=== PATIENT | male | born 1930 | race Caucasian/White ===

== ENCOUNTER 2016-12-16 03:37 | Inpatient (IN) | payer OTHER ==
[~2016-12-16] VITALS: Ht 177.8 cm; Wt 105.3 kg
[2016-12-16 04:16] LABS: BASOPHIL COUNT 0.1 K/uL (0-0.1); EOSINOPHIL (%) 2.1 % (0-5); EOSINOPHIL COUNT 0.3 K/uL (0-0.3); HEMATOCRIT 41.2 % (38.0-50.0); IMMATURE GRANULOCYTE (%) 0.7 % (0.0-0.7); IMMATURE GRANULOCYTE COUNT 0.1 K/uL; INSTRUMENT ABS NEUTROPHIL CT 8.9 K/uL; LYMPHOCYTE COUNT 3.2 K/uL (1.0-2.8); MCH 32.4 PG (29.0-34.0); MCHC 33.7 G/DL (30.0-36.0); MEAN PLAT.VOLUME 10.3 uM^3 (9.0-12.4); MONOCYTE (%) 8.9 % (3-12); MONOCYTE COUNT 1.2 K/uL (0-0.8); NEUTROPHIL (%) 64.5 % (45-76); NEUTROPHIL COUNT 8.9 K/uL (1.8-6.4); PLATELET COUNT 228 K/uL (156-360); RBC DIS.WIDTH-CV 12.2 % (11.8-14.6); RBC DIS.WIDTH-SD 42.8 % (39-53); RED BLOOD COUNT 4.29 M/uL (4.00-5.50); WHITE BLOOD COUNT 13.8 K/uL (4.1-10.2)
[2016-12-16 04:37] LABS: CHLORIDE 108 mEq/L (99-109); POTASSIUM 4.3 mEq/L (3.7-5.4); SODIUM 143 mEq/L (136-147)
[2016-12-16 04:39] LABS: GLUCOSE 113 mg/dL (70-99)
[2016-12-16 04:40] LABS: ANION GAP 11 MEQ/L (2-14)
[2016-12-16 04:42] LABS: PROTHROMBIN TIME 10.6 (9.2-11.2); PTT 25.3 (25-32)
[2016-12-16 04:43] LABS: GFR ESTIMATE (CALCULATED) 51 mL/min/
[2016-12-16 04:44] LABS: UREA NITROGEN (BUN) 23 mg/dL (9-23)
[2016-12-16 04:49] LABS: TROP-I INTERPRETATION NEGATIVE; TROPONIN-I 0.03 ng/mL (0.0-0.30)
[2016-12-16] MEDS ORDERED: TRAMADOL HCL50 MG PO (07:26)
[2016-12-16] MEDS ORDERED: ATENOLOL50 MG PO (07:26)
[2016-12-16] MEDS ORDERED: NORVASC10 MG PO (07:27)
[2016-12-16] MEDS ORDERED: LOSARTAN POTAS100 MG PO (07:27)
[2016-12-16] MEDS ORDERED: LEVO-T137 MCG PO (07:28)
[2016-12-16] MEDS ORDERED: CENTRUM SILVER1 EAC5 PO (07:30)
[2016-12-16] MEDS ORDERED: LANSOPRAZOLE30 MG PO (07:30)
[2016-12-16 08:39] LABS: HDL CHOLESTEROL 30 MG/DL (Desirable>=40); LDL CHOLESTEROL 102 mg/dL (Desirable<100); NON-HDL CHOLESTEROL 117 mg/dL (Desirable<160); TOTAL CHOLESTEROL 147 mg/dL (Desirable<200); TRIGLYCERIDES 74 MG/DL (Normal: <150)
[2016-12-16 08:42] VITALS: BP 162/71
[2016-12-16 11:39] VITALS: BP 140/65
[2016-12-16 14:00] LABS: TROP-I INTERPRETATION POSITIVE; TROPONIN-I 1.36 ng/mL (0.0-0.30)
[2016-12-16 15:53] LABS: INTER. NORMALIZED RATIO 1.1
[2016-12-16 16:16] VITALS: BP 123/58
[2016-12-16 20:00] VITALS: BP 144/65
[2016-12-16 21:54] LABS: TROP-I INTERPRETATION POSITIVE; TROPONIN-I 1.63 ng/mL (0.0-0.30)
[2016-12-16 22:00] VITALS: BP 166/73
[2016-12-16 23:28] VITALS: BP 152/73; BP 179/74
[2016-12-17 03:14] VITALS: BP 142/62
[2016-12-17 07:27] VITALS: BP 170/71
[2016-12-17 13:10] VITALS: BP 173/75
[2016-12-17 16:04] VITALS: BP 146/67
[2016-12-17] MEDS ORDERED: LEVO-T112 MCG PO (16:13)
[2016-12-17] MEDS ORDERED: COLACE100 MG PO (16:14)
[2016-12-17 19:59] VITALS: BP 155/70
[2016-12-17 23:45] VITALS: BP 148/70
[2016-12-18 03:57] VITALS: BP 141/65
[2016-12-18 08:07] VITALS: BP 160/85
[2016-12-18 12:13] VITALS: BP 171/73
[2016-12-18 15:58] VITALS: BP 167/84
[2016-12-18 20:15] VITALS: BP 178/76
[2016-12-18 23:00] VITALS: BP 138/54
[2016-12-19 03:32] LABS: HEMATOCRIT 39.2 % (38.0-50.0); MCHC 33.4 G/DL (30.0-36.0); MCV 95.6 FL (86-99); MEAN PLAT.VOLUME 10.2 uM^3 (9.0-12.4); PLATELET COUNT 231 K/uL (156-360); RBC DIS.WIDTH-SD 41.7 % (39-53); WHITE BLOOD COUNT 11.5 K/uL (4.1-10.2)
[2016-12-19 04:00] VITALS: BP 144/71
[2016-12-19 07:36] VITALS: BP 151/69
[2016-12-19 08:42] LABS: ANION GAP 8 MEQ/L (2-14); CHLORIDE 104 MEQ/L (99-109); GFR ESTIMATE (CALCULATED) > 59 mL/min/; GLUCOSE 95 mg/dL (70-99); POTASSIUM 4.4 MEQ/L (3.7-5.4); SAMPLE HEMOLYSIS CHECK 0; SAMPLE ICTERIC CHECK 0; SAMPLE LIPEMIA CHECK 0; SODIUM 140 MEQ/L (136-147); UREA NITROGEN (BUN) 19 mg/dL (9-23)
[2016-12-19 20:24] LABS: BASOPHIL COUNT 0.1 K/uL (0-0.1); EOSINOPHIL (%) 1.6 % (0-5); EOSINOPHIL COUNT 0.2 K/uL (0-0.3); HEMATOCRIT 40.2 % (38.0-50.0); IMMATURE GRANULOCYTE (%) 0.4 % (0.0-0.7); IMMATURE GRANULOCYTE COUNT 0.1 K/uL; INSTRUMENT ABS NEUTROPHIL CT 8.1 K/uL; MCH 31.7 PG (29.0-34.0); MCHC 33.3 G/DL (30.0-36.0); MEAN PLAT.VOLUME 10.3 uM^3 (9.0-12.4); MONOCYTE (%) 8.8 % (3-12); MONOCYTE COUNT 1.1 K/uL (0-0.8); NEUTROPHIL (%) 64.7 % (45-76); NEUTROPHIL COUNT 8.1 K/uL (1.8-6.4); PLATELET COUNT 239 K/uL (156-360); RBC DIS.WIDTH-CV 12.2 % (11.8-14.6); RBC DIS.WIDTH-SD 42.2 % (39-53); RED BLOOD COUNT 4.23 M/uL (4.00-5.50); WHITE BLOOD COUNT 12.4 K/uL (4.1-10.2)
[2016-12-19 21:00] VITALS: BP 177/77
[2016-12-19 23:25] VITALS: BP 175/83
[2016-12-20 00:20] VITALS: BP 177/77
[2016-12-20 04:19] VITALS: BP 171/73
[2016-12-20 07:20] LABS: BASOPHIL COUNT 0.1 K/uL (0-0.1); EOSINOPHIL (%) 1.8 % (0-5); EOSINOPHIL COUNT 0.2 K/uL (0-0.3); HEMATOCRIT 40.1 % (38.0-50.0); IMMATURE GRANULOCYTE (%) 0.5 % (0.0-0.7); IMMATURE GRANULOCYTE COUNT 0.1 K/uL; INSTRUMENT ABS NEUTROPHIL CT 8.8 K/uL; LYMPHOCYTE COUNT 2.2 K/uL (1.0-2.8); MCH 31.8 PG (29.0-34.0); MCHC 33.2 G/DL (30.0-36.0); MCV 95.9 FL (86-99); MEAN PLAT.VOLUME 10.6 uM^3 (9.0-12.4); MONOCYTE (%) 7.8 % (3-12); NEUTROPHIL (%) 71.8 % (45-76); NEUTROPHIL COUNT 8.8 K/uL (1.8-6.4); PLATELET COUNT 227 K/uL (156-360); RBC DIS.WIDTH-CV 12.2 % (11.8-14.6); RBC DIS.WIDTH-SD 42.5 % (39-53); RED BLOOD COUNT 4.18 M/uL (4.00-5.50); WHITE BLOOD COUNT 12.3 K/uL (4.1-10.2)
[2016-12-20 07:38] VITALS: BP 142/64
[2016-12-20 07:44] LABS: ANION GAP 8 MEQ/L (2-14); CHLORIDE 105 MEQ/L (99-109); GFR ESTIMATE (CALCULATED) > 59 mL/min/; GLUCOSE 100 mg/dL (70-99); POTASSIUM 4.2 MEQ/L (3.7-5.4); SAMPLE HEMOLYSIS CHECK 0; SAMPLE ICTERIC CHECK 0; SAMPLE LIPEMIA CHECK 0; SODIUM 140 MEQ/L (136-147); UREA NITROGEN (BUN) 14 mg/dL (9-23)
[2016-12-20] MEDS ORDERED: ATORVASTATIN CA40 MG PO (09:21)
[2016-12-20] MEDS ORDERED: ASPIR-LOW81 MG PO (09:21)
[2016-12-20] MEDS ORDERED: BRILINTA90 MG PO (09:22)
[2016-12-20 11:13] VITALS: BP 133/63
== END 2016-12-20 15:02 | disposition home or self-care (01) | DRG 247 ==
LOC: EME 03:37 → EDOF 07:28 → 5WEST 08:41 → 4EAST 14:28 → 5WEST 14:28 → 4EAST 22:18
PROVIDERS: Emergency Medicine; Internal Medicine; Internal Medicine Cardiovascular Disease
DX: I21.4 Non-ST elevation (NSTEMI) myocardial infarction (principal); C85.10 Unspecified B-cell lymphoma, unspecified site; C95.90 Leukemia, unspecified not having achieved remission; N18.3 Chronic kidney disease, stage 3 (moderate); I13.10 Hypertensive heart and chronic kidney disease without heart failure, with stage 1 through stage 4 chronic kidney disease, or unspecified chronic kidney disease; J98.4 Other disorders of lung; D72.829 Elevated white blood cell count, unspecified; I70.0 Atherosclerosis of aorta; I27.2 Other secondary pulmonary hypertension; I25.10 Atherosclerotic heart disease of native coronary artery without angina pectoris; Z87.891 Personal history of nicotine dependence; E66.9 Obesity, unspecified; Z68.33 Body mass index [BMI] 33.0-33.9, adult; I08.3 Combined rheumatic disorders of mitral, aortic and tricuspid valves
CPT/HCPCS: 71020; 80048; 80061; 84484; 85025; 85027; 85347; 85610; 85730; 93005; 93306; 99281; 99285; C1725; C1769; C1874; C1887; J1644; J2250; J3010; J3246

== ENCOUNTER 2017-08-06 17:46 | Emergency (ER) | payer OTHER ==
[~2017-08-06] VITALS: Ht 177.8 cm; Wt 108.2 kg
[~2017-08-06 17:46] MED LIST: ASPIR-LOW81 MG PO; ATENOLOL50 MG PO; ATORVASTATIN CA40 MG PO; BRILINTA90 MG PO; CENTRUM SILVER1 EAC5 PO; COLACE100 MG PO; LANSOPRAZOLE30 MG PO; LEVO-T112 MCG PO; LEVO-T137 MCG PO; LOSARTAN POTAS100 MG PO; NORVASC10 MG PO; TRAMADOL HCL50 MG PO
[2017-08-06 19:19] LABS: BASOPHIL COUNT 0.1 K/uL (0-0.1); EOSINOPHIL (%) 4.7 % (0-5); EOSINOPHIL COUNT 0.7 K/uL (0-0.3); HEMATOCRIT 39.3 % (38.0-50.0); IMMATURE GRANULOCYTE (%) 0.6 % (0.0-0.7); IMMATURE GRANULOCYTE COUNT 0.1 K/uL; LYMPHOCYTE COUNT 3.3 K/uL (1.0-2.8); MCH 32.5 PG (29.0-34.0); MCHC 34.1 G/DL (30.0-36.0); MCV 95.4 FL (86-99); MEAN PLAT.VOLUME 10.6 uM^3 (9.0-12.4); MONOCYTE (%) 7.5 % (3-12); MONOCYTE COUNT 1.1 K/uL (0-0.8); NEUTROPHIL (%) 63.1 % (45-76); PLATELET COUNT 229 K/uL (156-360); RBC DIS.WIDTH-CV 13.3 % (11.8-14.6); RED BLOOD COUNT 4.12 M/uL (4.00-5.50); WHITE BLOOD COUNT 14.2 K/uL (4.1-10.2)
[2017-08-06 19:29] LABS: CHLORIDE 110 mEq/L (99-109); POTASSIUM 4.2 mEq/L (3.7-5.4); SODIUM 141 mEq/L (136-147)
[2017-08-06 19:30] LABS: MAGNESIUM 2.2 mg/dL (1.3-2.7)
[2017-08-06 19:32] LABS: GLUCOSE 132 mg/dL (70-99)
[2017-08-06 19:33] LABS: ANION GAP 9 MEQ/L (2-14)
[2017-08-06 19:34] LABS: TOTAL BILIRUBIN 0.5 mg/dL (0.0-1.0)
[2017-08-06 19:35] LABS: ALKALINE PHOSPHATASE 102 IU/L (3-129); GFR ESTIMATE (CALCULATED) > 59 mL/min/
[2017-08-06 19:37] LABS: UREA NITROGEN (BUN) 21 mg/dL (9-23)
[2017-08-06 19:38] LABS: CREATINE KINASE 102 IU/L (1-294); TOTAL CK 102 IU/L (1-294)
[2017-08-06 19:40] LABS: TROP-I INTERPRETATION NEGATIVE; TROPONIN-I < 0.01 ng/mL (0.0-0.30)
[2017-08-06 19:44] LABS: CK-MB 2.1 ng/mL (0.0-4.9)
[2017-08-06 20:31] VITALS: BP 142/93
== END 2017-08-06 20:38 | disposition home or self-care (01) ==
LOC: EME 17:46
PROVIDERS: Emergency Medicine
DX: R07.9 Chest pain, unspecified (principal); M54.12 Radiculopathy, cervical region; G89.29 Other chronic pain; K21.9 Gastro-esophageal reflux disease without esophagitis; J44.9 Chronic obstructive pulmonary disease, unspecified; E78.5 Hyperlipidemia, unspecified; I10 Essential (primary) hypertension; Z95.5 Presence of coronary angioplasty implant and graft; Z88.0 Allergy status to penicillin; Z87.891 Personal history of nicotine dependence
CPT/HCPCS: 71020; 80053; 82550; 82553; 83735; 84443; 84484; 85025; 93005; 99281; 99284

== ENCOUNTER 2018-06-03 02:18 | Observation (INO) | payer OTHER ==
[~2018-06-03] VITALS: Ht 177.8 cm; Wt 110.1 kg
[2018-06-03 03:03] LABS: HEMATOCRIT 42.4 % (38.0-50.0); HEMOGLOBIN 14.5 G/DL (12.5-16.6); MCH 32.1 PG (29.0-34.0); MCHC 34.2 G/DL (30.0-36.0); MCV 93.8 FL (86-99); PLATELET COUNT 192 K/uL (156-360); RBC DIS.WIDTH-CV 13.2 % (11.8-14.6); RBC DIS.WIDTH-SD 45.7 % (39-53); RED BLOOD COUNT 4.52 M/uL (4.00-5.50)
[2018-06-03 03:15] LABS: CHLORIDE 109 mEq/L (99-109); POTASSIUM 4.4 mEq/L (3.7-5.4); SODIUM 140 mEq/L (136-147)
[2018-06-03 03:17] LABS: GLUCOSE 105 mg/dL (70-99); TOTAL PROTEIN 7.3 g/dL (6.4-8.3)
[2018-06-03 03:19] LABS: TOTAL BILIRUBIN 0.8 mg/dL (0.0-1.0)
[2018-06-03 03:20] LABS: ALKALINE PHOSPHATASE 89 IU/L (3-129)
[2018-06-03 03:21] LABS: CREATININE 1.3 mg/dL (0.6-1.3); GFR ESTIMATE (CALCULATED) 55 mL/min/ (58.99-99999)
[2018-06-03 03:22] LABS: AST (GOT) 20 IU/L (2-34); UREA NITROGEN (BUN) 23 mg/dL (9-23)
[2018-06-03 03:24] LABS: ALT (GPT) 16 IU/L (3-49)
[2018-06-03 03:25] LABS: TROP-I INTERPRETATION NEGATIVE; TROPONIN-I < 0.01 ng/mL (0.0-0.30)
[2018-06-03 07:32] VITALS: BP 157/73
[2018-06-03] MEDS ORDERED: ASPIRIN325 MG PO (10:08)
[2018-06-03] MEDS ORDERED: GABAPENTIN100 MG PO (10:09)
[2018-06-03] MEDS ORDERED: SPIRIVA18 MCG IH (11:02)
[2018-06-03 12:07] VITALS: BP 158/72
== END 2018-06-03 12:40 | disposition home or self-care (01) ==
LOC: EME → EDBD 02:18 → EME 02:18 → EDOF 05:53 → ENRESERV 05:55 → 4EAST 07:21
PROVIDERS: Emergency Medicine
DX: R51 Headache (principal); R09.02 Hypoxemia; I25.10 Atherosclerotic heart disease of native coronary artery without angina pectoris; Z95.5 Presence of coronary angioplasty implant and graft; J43.9 Emphysema, unspecified; Z85.79 Personal history of other malignant neoplasms of lymphoid, hematopoietic and related tissues; I10 Essential (primary) hypertension; E78.5 Hyperlipidemia, unspecified; I27.20 Pulmonary hypertension, unspecified; G89.29 Other chronic pain; E03.9 Hypothyroidism, unspecified; R60.0 Localized edema; E66.9 Obesity, unspecified; Z79.82 Long term (current) use of aspirin; Z88.1 Allergy status to other antibiotic agents; Z88.0 Allergy status to penicillin
CPT/HCPCS: 71045; 80053; 83880; 84484; 85027; 93005; 94799; G0378; J1940